=== PATIENT | male | born 1930 | race Caucasian/White ===

== ENCOUNTER 2016-08-17 20:43 | Emergency (ER) | payer MEDICARE, BC ==
--- NOTE | ~2016-08-17 | ER ---
PATIENT'S NAME: ROSE MARY GOLDBERG [facility] AGE: 85 Y [address] ROOM: [place] [address] LOCATION: [facility] ADMIT DATE: 08/17/2016 ER/Outpatient Report DISCHARGE DATE: 08/17/2016 FAMILY PHYSICIAN: Dante Cook MD ATTENDING PHYSICIAN: Khadra Mclean HISTORY OF PRESENT ILLNESS: An 85-year-old male who presents with a chief complaint of fall and questionable head injury. This happened 45 minutes ago. His family states that he has had frequent falls since 2013, secondary to severe Alzheimer's dementia. The patient denies any complaints at this time. He says he does not have a headache. The family witnessed the fall, the patient does not remember what happened, and they just wanted him to get checked out. PAST MEDICAL HISTORY: Includes [id number] diabetes, hypertension, Alzheimer's dementia, GERD, gout, osteoarthritis, and frequent falls since 2013. PAST SURGICAL HISTORY: Hip fracture. SOCIAL HISTORY: He does not smoke, drink, or use any drugs. He is from a [place] [facility]. He is and is at bedside. MEDICATIONS: Please see med list. ALLERGIES: PLEASE SEE MED LIST. REVIEW OF SYSTEMS: Reviewed by me and negative with the exception of those discussed in HPI. PHYSICAL EXAMINATION: VITAL SIGNS: He weighs 65.7 kilos, blood pressure 137/64, heart rate 50, temp is 96.6, and satting 93% on room air. GENERAL: The patient is alert and oriented to person and place. He does not know the year, he does not know why he is here. HEENT: His pupils are equal and reactive to light. His GCS is 15. He has no signs of facial trauma. He has a small hematoma on the back of his head the left occiput area, but it is nontender on palpation. He is not actively vomiting or retching. HEART: His heart rate is bradycardic around 55 beats per minute at this time. LUNGS: Lung sounds are clear. PATIENT'S NAME: ROSE MARY GOLDBERG [facility] AGE: 85 Y [address] ROOM: [place] [address] LOCATION: [facility] ADMIT DATE: 08/17/2016 ER/Outpatient Report DISCHARGE DATE: 08/17/2016 FAMILY PHYSICIAN: Dante Cook MD ATTENDING PHYSICIAN: Khadra Mclean ABDOMEN: Soft, nontender, nondistended. EXTREMITIES: No obvious deformity. NEURO: He does not really follow commands that well, but his family says that is at his baseline. He is able to squeeze my fingers, he is able to respond to simple questions like what is your name. EMERGENCY ROOM COURSE: We did a CT of his head and it is no acute fracture or intracranial bleed. The patient is to be sent back to the [place] [facility]. They understand reasons to come back to the ER sooner. IMPRESSION: Frequent falls, head injury. MD CAYETANO PRATHRE/sally /[id number] d: 08/18/16607 t: 08/18/16 193, OUTPATIENT REPORT
== END 2016-08-17 22:14 | disposition disaster alternative care site (69) ==
LOC: GACC 20:43
DX: S00.03XA Contusion of scalp, initial encounter (principal); S09.90XA Unspecified injury of head, initial encounter; R29.6 Repeated falls; E11.9 Type 2 diabetes mellitus without complications; I10 Essential (primary) hypertension; G30.9 Alzheimer's disease, unspecified; F02.80 Dementia in other diseases classified elsewhere, unspecified severity, without behavioral disturbance, psychotic disturbance, mood disturbance, and anxiety; K21.9 Gastro-esophageal reflux disease without esophagitis; M19.90 Unspecified osteoarthritis, unspecified site; Z79.899 Other long term (current) drug therapy; Z88.8 Allergy status to other drugs, medicaments and biological substances; W19.XXXA Unspecified fall, initial encounter

== ENCOUNTER → 2016-08-17 | Outpatient (CLI) | payer MEDICARE, BC ==
[~2016-08-17] MED LIST: "\\\"PREP SPRAY\\\"-TIN4 OZ"; ATIVAN 0.5MG0.5 MG PO; AVAPRO300 MG PO; CALCIUM GLUC500 MG PO; DULCOLAX10 MG R; FLOMAX0.4 MG PO; IRON SUPPLEMEN325 MG PO; LEXAPRO5 MG PO; LOPID600 MG PO; MILK OF MA400 MG/5 M; NORCO 5-325 MG1 TAB PO; NORVASC5 MG PO; OCEAN NASAL) (A44 ML NOSE; OSTERA TABLET1 EACH PO; PROTONIX40 MG PO; SALINE MIST45 ML NS; SEROQUEL25 MG PO; STARLIX120 MG PO; TYLENOL EXTRA500 MG PO; XARELTO10 MG PO
== END | disposition disaster alternative care site (69) ==
LOC: GAMB 20:21
DX: R29.6 Repeated falls (principal); G30.9 Alzheimer's disease, unspecified; F02.80 Dementia in other diseases classified elsewhere, unspecified severity, without behavioral disturbance, psychotic disturbance, mood disturbance, and anxiety; Z79.2 Long term (current) use of antibiotics; Z79.899 Other long term (current) drug therapy
CPT/HCPCS: A0425; A0427

== ENCOUNTER → 2016-08-17 | Outpatient (CLI) | payer MEDICARE, BC | END | disposition disaster alternative care site (69) | LOC: GAMB 22:08 | DX: R53.1 Weakness (principal); G30.9 Alzheimer's disease, unspecified; F02.80 Dementia in other diseases classified elsewhere, unspecified severity, without behavioral disturbance, psychotic disturbance, mood disturbance, and anxiety; R29.6 Repeated falls; Z79.2 Long term (current) use of antibiotics; Z79.899 Other long term (current) drug therapy | CPT/HCPCS: A0425; A0428 ==

== ENCOUNTER → 2016-09-12 | Outpatient (CLI) | payer MEDICARE, BC | END | disposition disaster alternative care site (69) | LOC: GAMB 16:51 | DX: R53.1 Weakness (principal); M25.551 Pain in right hip; W19.XXXA Unspecified fall, initial encounter | CPT/HCPCS: A0425; A0429 ==